=== PATIENT | male | born 2000 | race Two or more races ===

== ENCOUNTER 2022-01-19 11:29 | Emergency (ER) | payer OTHER ==
[~2022-01-19] VITALS: Ht 172.7 cm; Wt 90.7 kg
[2022-01-19] MEDS ORDERED: IBUP800T27 PO (12:52)
== END 2022-01-19 12:58 | disposition home or self-care (01) ==
LOC: ER 11:29
DX: S90.31XA Contusion of right foot, initial encounter (principal); W18.00XA Striking against unspecified object with subsequent fall, initial encounter; Y93.89 Activity, other specified; Y92.89 Other specified places as the place of occurrence of the external cause; Y99.8 Other external cause status
CPT/HCPCS: 73630